=== PATIENT | male | born 1965 | race African-American/Black ===

== ENCOUNTER 2017-10-14 20:15 | Emergency (ER) | payer SELFPAY ==
--- NOTE | 2017-10-14 20:15 | NUR ---
PT WAS NOT SEEN, REGISTERED ONLY.
== END 2017-10-14 23:59 | disposition left against medical advice (07) ==
LOC: ER 20:17
DX: Z75.3 Unavailability and inaccessibility of health-care facilities (principal)

== ENCOUNTER 2017-12-13 20:46 | Emergency (ER) | payer BC ==
[~2017-12-13] VITALS: Ht 180.3 cm; Wt 92.5 kg
[2017-12-13] MEDS ORDERED: HYDROCODONE/APAP 10-325 MG TABLET PO ONE (21:15)
--- NOTE | 2017-12-13 21:15 | NUR ---
DR KYAW ARMAS MD AT BEDSIDE FOR MSE.
[2017-12-13] MEDS ORDERED: HYDROCODONE/APAP 10-325 MG TABLET ONE (21:24)
--- NOTE | 2017-12-13 21:30 | NUR ---
REDIOLOGY AT BEDSIDE FOR XRAY.
--- NOTE | 2017-12-13 22:42 | NUR ---
Patient discharged to home in stable conditon. Written and verbal after care instructions given. Patient verbalizes understanding of instructions. Pt ambulated from ER w/ steady gait. Pt denies pain,n/v,kiran,dizziness at this time. No distress noted. Pt took all personal belongings.
[2017-12-13 22:43] VITALS: BP 133/82
== END 2017-12-13 22:43 | disposition home or self-care (01) ==
LOC: ER 20:51
DX: M25.512 Pain in left shoulder (principal); M54.6 Pain in thoracic spine
CPT/HCPCS: 71045; 73030; A4663